=== PATIENT | female | born 1980 | race Caucasian/White ===

== ENCOUNTER → 2017-04-01 | Outpatient (CLI) | payer OTHER ==
[2016-01-21 14:55] VITALS: BP 129/90
--- NOTE | 2017-04-01 15:13 | US ---
HISTORY: Thyroid nodule Study: Thyroid sonogram Comparison: None Technique: Multiple grayscale sonographic images were obtained. Findings: The right lobe measured 4.9 x 1.7 x 2.1 centimeters, the isthmus 4.2 millimeters com and the left lo be 4.4 x 1.8 x 1.9 centimeters. No isthmic or thyroid nodules are identified. There are 2 thyroid no dules in the right thyroid lobe measuring 1 point 3 5 and 1.25 centimeters respectively. These do no t meet the criteria for fine needle aspiration. By history 1 of these nodules was biopsied in 2011 a nd proven benign. IMPRESSION: 2 right lobe thyroid nodule which do not meet the criteria for fine needle aspiration Reported By:
== END ==
LOC: RAD 13:22
PROVIDERS: ATTEND Nurse Practitioner Family
DX: E04.1 Nontoxic single thyroid nodule (principal)
CPT/HCPCS: 76536

== ENCOUNTER → 2017-06-30 | Outpatient (CLI) | payer OTHER ==
[2016-01-21 14:55] VITALS: BP 129/90
--- NOTE | 2017-06-30 15:04 | CT ---
HISTORY: Left lower limb pain. History of DVT. Study: CT angiography with bilateral lower extremity runoff with and without contrast Comparison: None available. Technique: Multiple axial images of the abdomen and pelvis were obtained from the mesenteric vasculature to the plantar surface of the feet both prior to and after the administration of IV contrast. 3D reconstruc tions were performed utilizing radial maximum intensity projection imaging.Dose reduction techniques including Automated Exposure Control (AEC) and adjustment of mA and kV were utilized. Findings: The visualized portions of the solid organs are unremarkable in their CT appearance. No significant mesenteric lymphadenopathy or stranding can be observed. No free fluid or free air is seen within th e abdomen. No bowel wall thickening or bowel dilatation is present. The colon is unremarkable. Spe cifically, there is no diverticulosis noted within the sigmoid colon. The urinary bladder is grossly unremarkable. The bony structures are grossly intact. Infrarenal abdominal aorta: Not included on exam. Common iliac arteries: Appear normal without evidence of atherosclerosis or stenosis. External iliac arteries: Appear normal without evidence of atherosclerosis or stenosis. Common femoral arteries: Appear normal without evidence of atherosclerosis or stenosis. Superficial femoral arteries: Appear normal without evidence of atherosclerosis or stenosis. Popliteal arteries: Appear normal without evidence of atherosclerosis or stenosis. Tibial vasculature: Appear normal without evidence of atherosclerosis or stenosis. IMPRESSION: Unremarkable exam. Reported By:
== END ==
LOC: RAD 10:54
PROVIDERS: ATTEND Nurse Practitioner Family
DX: M79.662 Pain in left lower leg (principal); Z86.718 Personal history of other venous thrombosis and embolism; Z86.711 Personal history of pulmonary embolism
CPT/HCPCS: 73706; A4222

== ENCOUNTER 2017-07-02 22:17 | Emergency (ER) | payer OTHER ==
[2017-07-02 22:35] VITALS: BP 122/80; BMI 44.1
[2017-07-03 00:22] LABS: BASOPHILS # (AUTO) 0.1 X10^3/uL (0.0-0.1); EOSINOPHILS # (AUTO) 0.1 x10^3/uL (0.0-0.2); EOSINOPHILS % (AUTO) 0.5 % (0.9-2.9); LYMPHOCYTES # (AUTO) 1.8 X10^3/uL (1.3-2.9); MEAN PLATELET VOLUME 8.5 fL (7.4-11.0)
[2017-07-03 00:26] LABS: BASOPHILS % (AUTO) 0.8 % (0.2-1.0); HEMATOCRIT 39.7 % (36.0-47.0); HEMOGLOBIN 13.2 g/dL (12.0-16.0); MEAN CORPUSCULAR HEMOGLOBIN 29.3 pg (27.0-34.0); MEAN CORPUSCULAR HGB CONC 33.1 g/dL (33.0-35.0); MEAN CORPUSCULAR VOLUME 88.5 fL (80.0-100.0); MONOCYTES % (AUTO) 7.4 % (0.0-13.0); NEUTROPHILS # (AUTO) 10.6 x10^3/uL (2.2-4.8); NEUTROPHILS % (AUTO) 78.3 % (42.0-75.0); PLATELET COUNT 143 X10^3/uL (150.0-450.0); RED BLOOD COUNT 4.48 X10^6/uL (3.5-5.4); RED CELL DISTRIBUTION WIDTH 13.7 % (11.6-16.5); WHITE BLOOD COUNT 13.6 X10^3/uL (3.6-10.0)
[2017-07-03 00:29] LABS: ALANINE AMINOTRANSFERASE 22 Units/L (12-78); ALBUMIN 2.9 g/dL (3.4-5.0); ALKALINE PHOSPHATASE 114 Units/L (46-116); ASPARTATE AMINO TRANSFERASE 17 Units/L (15-37); BLOOD UREA NITROGEN 22 mg/dL (7-18); CALCIUM 8.2 mg/dL (8.5-10.1); CHLORIDE 107 mmol/L (98-107); COR CA(FOR HYPOALB) 9.1 mg/dL (8.5-10.1); SODIUM 140 mmol/L (136-145); TOTAL PROTEIN 6.4 g/dL (6.4-8.2); eGFR BLACK RACES > 60 (>60); eGFR NON BLACK RACES > 60 (>60)
--- NOTE | 2017-07-03 00:38 | DR.GENAD ---
HPI - PCP Primary Care Physician: efrem hyatt - HPI Comment HPI Comment: HISTORY BELOW. - Complaint/Symptoms Chief Complaint Doctors Comments: PATIENT HAVE PAIN IN LLE. HISTORY DVT ON ELIQUEST. PATIENT HAVE DEVELOPD DVT ON MEDICATION PREVIOUSLY. SHE IS HAVING CHEST PAIN THAT IS WORSE TODAY. HAVE ICV FILTER. Chief Complaint:: c/o pain in left leg; hx of DVT and PE. Had a doppler with negative findings in [place] (06/21/17). Patient reports she had a CTA here of left leg that was negative. DVT and PE last January. Hx of clotting disorder. Takes Eliquis at home. Patient also states that she is mildly short of breath which started today. - Nurses notes reviewed Nurses Notes Review: Yes - Source History Provided: Patient - Mode of Arrival Mode of Arrival: Ambulatory - Timing Onset of Chief Complaint: 06/21/17 Came on: Suddenly - Duration Duration: Constant Duration: Days - Severity Severity: Moderate PMH - PMH Past Medical History: Yes Past Medical History: Anxiety, Depression, GERD Past Medical History Comment: Clotting disorder Past Surgical History: Yes Surgical History: Cholecystectomy, [employer] Surgery, Ortho Surgery, Weight Loss Surgery Past Surgical History Comment: IVC filter - Family History History of Family Medical Conditions: Yes Family Medical History: Diabetes Mellitus, Hypertension - Social History Type of Tobacco Use: None Does any household member use tobacco: No Alcohol Use: None Do you use any recreational Drugs:: No Lives With: Spouse Lives Where: Home - infectious screening In the last 2 months have you had wt loss of >10#?: NO Have you had fever, night sweats or hemotysis?: No Have you traveled outside the country in the last 6 months?: No Isolation: Standard ROS - Review of Systems Constitutional: No Symptoms Reported Eyes: No Symptoms Reported ENTM: No Symptoms Reported Respiratoy: No Symptoms Reported Cardiovascular: Chest Pain Genitourinary: No Symptoms Reported Neurological: No Symptoms Reported Musculoskeletal: Left, Hip (PAIN AND SWELLING.), Leg Integumentary: Other (SWELLING LLE.) Hematologic/Lymphatic: No Symptoms Reported Endocrine: No Symptoms Reported All Other Systems: Reviewed and Negative PE - Vital Signs Vitals: Temperature 99 F Pulse Rate 109 Respiratory Rate 20 Blood Pressure [Left Arm] 129/90 Blood Pressure 122/80 O2 Sat by Pulse Oximetry 98 - General Limitations: No Limitations General Appearance: Alert - Head Head Exam: Normal Inspection - Eyes Eye exam: Normal Appearance - ENT ENT Exam: Normal External Ear Exam External Ear Exam: Normal External Inspection TM/Canal Exam: Bilateral Normal Nose Exam: Normal Nose Exam Mouth Exam: Normal Inspection Throat Exam: Normal Inspection - Neck Neck Exam: Normal Inspection - Chest Chest Inspection: Symmetric Chest Wall Rise - Respiratory Respiratory Exam: Normal Lung Sounds Bilat Respiratory Exam: Bilateral Clear to Auscultation - Cardiovascular Cardiovascular Exam: Regular Rate, Normal Rhythm, Normal Heart Sounds - Abdominal Exam Abdominal Exam: Normal Bowel Sounds - Extremities Extremities Exam: Normal Inspection (AND TENDERNESS LLE.), Tenderness - Back Back Exam: Normal Inspection - Neurologic Neurological Exam: Alert, Oriented X3 - Psychiatric Psychiatric Exam: Normal Affect, Normal Mood - Skin Skin Exam: Normal Color MDM - Additional Information Additional Information Obtained From: Family - Differential Diagnosis Differential Diagnosis: DVT, PE, LLE PAIN Course - Treatment Treatment: SEE ORDERS. - Consultation Consultation Comments: DISCUSS PATIENT WITH DR. GALLOWAY. PATIENT TO CONTINUE ELIQUEST AND SEE PCP TUESDAY. - Education/Counseling Education/Counseling: Patient, Family, Education Educated On: Diagnosis, Needs for Follow Up ROR - Labs Reviewed Laboratory Results Reviewed?: Yes Result Diagrams: 07/03/17 00:04 07/03/17 00:04 Laboratory: WBC 13.6 X10^3/uL (3.6-10.0) H 07/03/17 00:04 RBC 4.48 X10^6/uL (3.5-5.4) 07/03/17 00:04 Hgb 13.2 g/dL (12.0-16.0) 07/03/17 00:04 Hct 39.7 % (36.0-47.0) 07/03/17 00:04 MCV 88.5 fL (80.0-100.0) 07/03/17 00:04 MCH 29.3 pg (27.0-34.0) 07/03/17 00:04 MCHC 33.1 g/dL (33.0-35.0) 07/03/17 00:04 RDW 13.7 % (11.6-16.5) 07/03/17 00:04 Plt Count 143 X10^3/uL (150.0-450.0) L 07/03/17 00:04 Plt Count Comment Adequate (ADEQUATE) 07/03/17 00:04 MPV 8.5 fL (7.4-11.0) 07/03/17 00:04 Neut % 78.3 % (42.0-75.0) H 07/03/17 00:04 Lymph % 13.0 % (21.0-51.0) L 07/03/17 00:04 Coffey % 7.4 % (0.0-13.0) 07/03/17 00:04 Eos % 0.5 % (0.9-2.9) L 07/03/17 00:04 Baso % 0.8 % (0.2-1.0) 07/03/17 00:04 Neut # 10.6 x10^3/uL (2.2-4.8) H 07/03/17 00:04 Lymph # 1.8 X10^3/uL (1.3-2.9) 07/03/17 00:04 Coffey # 1.0 x10^3/uL (0.3-0.8) H 07/03/17 00:04 Eos # 0.1 x10^3/uL (0.0-0.2) 07/03/17 00:04 Baso # 0.1 X10^3/uL (0.0-0.1) 07/03/17 00:04 Absolute Nucleated RBC 0.1 /100WBC 07/03/17 00:04 Total Counted 100 07/03/17 00:04 Neutrophils % (Manual) 80 % (39-76) H 07/03/17 00:04 Lymphocytes % (Manual) 15 % (13-43) 07/03/17 00:04 Monocytes % (Manual) 5 % (4-9) 07/03/17 00:04 Plt Morphology Comment Normal (NORMAL) 07/03/17 00:04 RBC Morphology Normal (NORMAL) 07/03/17 00:04 INR Target Range - 07/03/17 00:04 INR 0.93 (0.8-1.3) 07/03/17 00:04 PTT 22.4 SECONDS (22.9-36.5) L 07/03/17 00:04 PTT Comment - 07/03/17 00:04 D-Dimer 4620 ng/mL (0-400) H* 07/03/17 00:04 Sodium 140 mmol/L (136-145) 10/29/17 00:04 Corrected Sodium TNP 07/03/17 00:04 Potassium 3.9 mmol/L (3.5-5.1) 07/03/17 00:04 Chloride 107 mmol/L (98-107) 07/03/17 00:04 Carbon Dioxide 26.0 mmol/L (21-32) 07/03/17 00:04 BUN 22 mg/dL (7-18) H 07/03/17 00:04 Creatinine 1.00 mg/dL (0.55-1.02) 07/03/17 00:04 Est GFR (MDRD) Af Amer > 60 (>60) 07/03/17 00:04 Est GFR (MDRD) Non-Af > 60 (>60) 07/03/17 00:04 Glucose 97 mg/dL (65-99) 07/03/17 00:04 Calcium 8.2 mg/dL (8.5-10.1) L 07/03/17 00:04 Corrected Calcium 9.1 mg/dL (8.5-10.1) 07/03/17 00:04 Total Bilirubin 0.10 mg/dL (0.2-1.0) L 07/03/17 00:04 AST 17 Units/L (15-37) 07/03/17 00:04 ALT 22 Units/L (12-78) 07/03/17 00:04 Alkaline Phosphatase 114 Units/L (46-116) 07/03/17 00:04 Total Protein 6.4 g/dL (6.4-8.2) 07/03/17 00:04 Albumin 2.9 g/dL (3.4-5.0) L 07/03/17 00:04 Globulin 3.5 g/dL (2.5-4.5) 07/03/17 00:04 Albumin/Globulin Ratio 0.8 Ratio (1.1-2.1) L 07/03/17 00:04 - XRAY XRAY Interpreted by: Radiologist XRAY Findings: REPORT DISCUSS WITH PATIENT AND FAMILY. - Diagnosis Discharge Problem: DVT (deep venous thrombosis) Qualifiers: DVT location: lower extremity Affected thrombotic vein of extremity: femoral Chronicity: acute Laterality: left Qualified Code(s): I82.412 - Acute embolism and thrombosis of left femoral vein - Discharge Plan Disposition: 01 HOME, SELF-CARE Condition: Stable - Follow ups/Referrals Follow ups/Referrals: MIN HYATT [Primary Care Provider] - 07/04/17 - Instructions Instructions: Deep Vein Thrombosis Additional Instructions: RETURN TO ED IF WORSE.
[2017-07-03 00:43] LABS: PLATELET MORPHOLOGY COMMENT NORMAL (NORMAL)
[2017-07-03] MEDS ORDERED: ZOFRAN INJ 4 MG VIAL IVP ONE (01:47)
[2017-07-03] MEDS ORDERED: DEMEROL INJ IVP ONE (01:47)
[2017-07-03] MEDS ORDERED: DEMEROL INJ ONE (01:48)
[2017-07-03] MEDS ORDERED: PHENERGAN INJ 25 MG IV ONE (01:58)
[2017-07-03] MEDS ORDERED: PHENERGAN INJ 25 MG ONE (01:58)
--- NOTE | 2017-07-03 02:04 | CT ---
EXAM: CTA CHEST WITH CONTRAST INDICATION: Elevated D-dimer COMPARISION: No priors for comparison TECHNIQUE: Spiral CT of the chest was performed with and without contrast. 3D reconstructions in the axial and p heidi-coronal planes were obtained. The patient received intravenous contrast without adverse reaction . FINDINGS: The heart size is normal. There is no evidence of a pulmonary embolism. The aorta is normal in calibe r. No evidence of dissection or aneurysm. No mediastinal or hilar mass or adenopathy. There is linear atelectasis bilaterally. No evidence of bullous disease or pulmonary fibrosis. No reece g mass, consolidation, or suspicious pulmonary nodule. No pleural effusion or pneumothorax identified . The regional skeleton is intact. IMPRESSION: There is atelectasis in both lungs. No pulmonary embolism. Reported By:
--- NOTE | 2017-07-03 03:06 | VAS ---
Exam: Left lower extremity ultrasound exam History: Lower extremity swelling/pain Comparison: None Technique: Real-time duplex scan of the lower extremity venous system was performed using B-mode/diaz scale imaging, Doppler spectral analysis, and color flow. Findings: Evaluation of the deep veins of the left lower extremity from the common femoral vein thro ugh the popliteal vein demonstrated noncompressibility consistent with the presence of thrombus. Conclusion: The deep veins of the left lower extremity from the common femoral vein through the popliteal vein ar e noncompressible consistent with presence of thrombus. Findings are positive for DVT. Reported By:
== END 2017-07-03 03:49 | disposition home or self-care (01) ==
LOC: ER 22:17
DX: I82.412 Acute embolism and thrombosis of left femoral vein (principal)
CPT/HCPCS: 36415; 71275; 80053; 85025; 85378; 85610; 85730; 93971; 96365; 96374; 96375; 99283; A4222; J2175; J2550